=== PATIENT | male | born 1975 | race Caucasian/White ===

== ENCOUNTER 2019-03-31 12:34 | Outpatient (CLI) | payer OTHER | END 2019-03-31 23:59 | disposition home or self-care (01) | LOC: CFH 12:34 | PROVIDERS: ATTEND Specialist | DX: M47.812 Spondylosis without myelopathy or radiculopathy, cervical region (principal); M48.02 Spinal stenosis, cervical region; R90.82 White matter disease, unspecified | CPT/HCPCS: 70553; 72156; A9585 ==